=== PATIENT | female | born 1970 | race African-American/Black ===

== ENCOUNTER 2024-12-31 09:12 | Emergency (ER) | payer MEDICAID, OTHER ==
[~2024-12-31] VITALS: Ht 182.9 cm; Wt 74.1 kg
--- NOTE | 2024-12-31 09:54 | ED.PDOC ---
History of Present Illness HPI Comments 54F presents to the ER w/ no prior Hx associated to the c/c of flank pain which radiates down to the left leg. pt reports on having left flank pain which radiates to the left leg in a "shocking". Pt notes that she has been unable to sleep for the past 2 days which is when the symptoms started. Denies chills, fever, N/V/D, SOB, CP or no other associated symptom's, modifiers, recent injuries or sick contacts at this time. Chief Complaint: Flank Pain Time Seen by MD: 09:40 Reviewed Notes: Nurses Notes, Medications, Allergies Allergies: Coded Allergies: Penicillins (Verified Allergy, Unknown, 12/31/24) Information Source: Patient Mode of Arrival: Ambulatory Severity: Moderate Timing: Days Duration: Since onset, Days Prehospital treatment: None Past Medical History PAST MEDICAL HISTORY: Denies Surgical History: Denies all surgeries COREMAKER History: No Pertinent COREMAKER History Family History Family History: Reviewed,noncontributory to illness, Unknown Social History Smoker: Non-Smoker Alcohol: Denies ETOH Use Drugs: Denies Drug Use Lives In: Home Constitutional: denies: chills, diaphoresis, fatigue, fever, malaise, sweats, weakness, others EENTM: denies: blurred vision, double vision, ear bleeding, ear discharge, ear drainage, ear pain, ear ringing, eye pain, eye redness, hearing loss, mouth pain, mouth swelling, nasal discharge, nose bleeding, nose congestion, nose pain, photophobia, tearing, throat pain, throat swelling, voice changes, others Respiratory: denies: cough, hemoptysis, orthopnea, SOB at rest, shortness of breath, SOB with excertion, stridor, wheezing, others Cardiovascular: denies: chest pain, dizzy spells, diaphoresis, Dyspnea on exertion, edema, irregular heart beat, left arm pain, lightheadedness, palpitations, PND, syncope, others Gastrointestinal: denies: abdomen distended, abdominal pain, blood streaked bowels, constipated, diarrhea, dysphagia, difficulty swallowing, hematemesis, melena, nausea, poor appetite, poor fluid intake, rectal bleeding, rectal pain, vomiting, others Genitourinary: reports: flank pain; denies: abnormal vagina bleeding, burning, dyspareunia, dysuria, frequency, hematuria, incontinence, pain, , vagina discharge, urgency, others Neurological: denies: dizziness, fainting, headache, left sided numbness, left sided weakness, numbness, paresthesia, pre-existing deficit, right sided numbness, right sided weakness, seizure, speech problems, tingling, tremors, weakness, others Musculoskeletal: denies: back pain, gout, joint pain, joint swelling, muscle pain, muscle stiffness, neck pain, others Integumetry: denies: bruises, change in color, change in hair/nails, dryness, laceration, lesions, lumps, rash, wounds, others Allergic/Immunocompromised: denies: Difficulty Healing, Frequent Infections, Hives, Itching, others Hematologic/Lymphatic: denies: anemia, blood clots, easy bleeding, easy bruising, swollen glands, others Endocrine: denies: excessive hunger, excessive sweating, excessive thirst, excessive urination, flushing, intolerance to cold, intolerance to heat, unexplained weight gain, unexplained weight loss, others Psychiatric: denies: anxiety, bipolar disorder, depression, hopeless, panic disorder, schizophrenia, sleepless, suicidal, others All Other Systems: Reviewed and Negative Physical Exam General Appearance: Moderate Distress, Normal HEENT: Normal ENT Inspection, Pharynx Normal, TMs Normal Neck: Full Range of Motion, Non-Tender, Normal, Normal Inspection Respiratory: Chest Non-Tender, Lungs Clear, No Accessory Muscle Use, No Res piratory Distress, Normal Breath Sounds Cardiovascular: No Edema, No JVD, No Murmur, No Gallop, Normal Peripheral Pulses, Regular Rate/Rhythm Breast Exam: Deferred Gastrointestinal: No Organomegaly, Non Tender, No Pulsatile Mass, Normal Bowel Sounds, Soft Genitalia: Deferred Pelvic: Deferred Rectal: Deferred Extremities: No calf tenderness, Normal capillary refill, Normal inspection, Normal range of motion, Non-tender, No pedal edema Musculoskeletal : Apperance: Normal Neurologic: Alert, fund accountant II-XII nml as Tested, No Motor Deficits, Normal Affect, Normal Mood, No Sensory Deficits Cerebellar Function: Normal Reflexes: Normal Skin: Dry, Normal Color, Warm Peripheral Pulses: 3+ Radial (R), 3+ Radial (L) Lymphatic: No Adenopathy Was a procedure done? Was a procedure done?: No Differential Dx Considerations may include: UTI Electrolyte imbalance X-Ray, Labs, Meds, VS Vital Signs Date Time Temp Pulse Resp B/P (MAP) Pulse Ox O2 Delivery O2 Flow Rate FiO2 12/31/24 10:05 89 18 97 Room Air* 0 21 12/31/24 10:00 97.4 89 18 185/100 (128) 97 97.4 12/31/24 09:38 97.7 80 16 176/81 (112) 97 97.7 Lab Test 12/31/24 10:10 12/31/24 09:40 Range/Units White Blood Count 10.0 4.4-10.8 10^3/uL Red Blood Count 5.37 H 4.0-5.20 10^6/uL Hemoglobin 14.0 12.2-16.2 g/dL Hematocrit 43.7 36.0-46.0 % Mean Corpuscular Volume 81.4 80.0-100.0 fL Mean Corpuscular Hemoglobin 26.1 L 28.0-32.0 pg Mean Corpuscular Hemoglobin Concent 32.1 32.0-36.0 g/dL Red Cell Distribution Width 14.1 11.8-14.3 % Platelet Count 209 140-450 10^3/uL Mean Platelet Volume 9.8 6.9-10.8 fL Neutrophils (%) (Auto) 60.1 37.0-80.0 % Lymphocytes (%) (Auto) 27.1 10.0-50.0 % Monocytes (%) (Auto) 11.0 0.0-12.0 % Eosinophils (%) (Auto) 0.8 0.0-7.0 % Basophils (%) (Auto) 1.0 0.0-2.0 % Neutrophils # (Auto) 6.0 1.6-8.6 10 ^3/uL Lymphocytes # (Auto) 2.7 0.4-5.4 10 ^3/uL Monocytes # (Auto) 1.1 0-1.3 10 ^3/uL Eosinophils # (Auto) 0.1 0-0.8 10 ^3/uL Basophils # (Auto) 0.1 0-0.2 10 ^3/uL Nucleated Red Blood Cells 0.2 % Sodium Level 140 136-145 mmol/L Potassium Level 3.8 3.5-5.1 mmol/L Chloride Level 109 H 98-107 mmol/L Carbon Dioxide Level 27 20-31 mmol/L Anion Gap 4 L 5-15 Blood Urea Nitrogen 6 L 9-23 mg/dL Creatinine 0.77 0.550-1.02 mg/dL Glomerular Filtration Rate Calc 92 >90 mL/min BUN/Creatinine Ratio 7.8 L 10.0-20.0 Serum Glucose 123 H 74-106 mg/dL Calcium Level 10.7 H 8.7-10.4 mg/dL Urine Color Yellow Yellow Urine Clarity Turbid H Clear Urine pH 5.0 5.0-9.0 Urine Specific [place] 1.015 1.001-1.035 Urine Protein Negative Negative Urine Ketones Negative Negative Urine Blood Trace H Negative /uL Urine Nitrite Negative Negative Urine Bilirubin Negative Negative Urine Urobilinogen Normal Negative mg/dL Urine Leukocyte Esterase 2+ Negative /uL Urine RBC 2 0 - 4 /hpf Urine Microscopic WBC 9 H 0-5 /HPF Urine Squamous Epithelial Cells Mod <5 /hpf Urine Bacteria Few H None Seen /hpf Urine Glucose Normal Normal mg/dL Current Medications Medications (Trade) Dose Ordered Sig/Gabo Route Start Time Stop Time Status Last Admin Ceftriaxone Sodium 50 ml @ 100 mls/hr ONCE ONCE IV 12/31/24 11:15 12/31/24 11:44 DC 12/31/24 11:43 Sodium Chloride 1,000 ml @ 1,000 mls/hr Q1H ONCE IV 12/31/24 11:15 12/31/24 12:14 DC 12/31/24 11:43 Patient alert. Complaining of flank pain. Vitals stable. Answering questions. Urinalysis shows UTI. Blood pressure elevated. Was given labetalol. Calcium elevated. Establish intravenous access. Was given fluids. Urosepsis. Was given Rocephin. Patient insists on staying. She states that he has something wrong with her. CT scan. Explained to the patient. Continue cardiac monitoring. Time of 1ST Reevaluation: 10:10 Reevaluation 1ST: Unchanged Patient Education/Counseling: Diagnosis, Treatment, Prognosis Family Education/Counseling: No Family Present Departure 1 Departure Time of Disposition: 11:00 Impression: Primary Impression: Hypercalcemia Additional Impression: UTI (urinary tract infection) Qualified Codes: N30.00 - Acute cystitis without hematuria Disposition: ADMITTED INPATIENT Admit to: Med Surg Condition: Guarded e-Prescriptions Sulfamethoxazole W/Trimethopri (Bactrim Ds Tablet) 1 Tab Tb 1 TAB PO BID for 7 Days, #14 TAB Prov: DAMARIS DRAKE MD 12/31/24 Critical Care Note Critical Care Time?: No Stability Stability form required: No Heart Score Heart Score: Heart Score Response (Comments) Value History N/A 0 EKG N/A 0 Age N/A 0 Risk Factors N/A 0 Troponin N/A 0 Total 0 I personally scribed for DAMARIS DRAKE MD ([email or web address]) on 12/31/24 at 09:54. Electronically submitted by Ronak Boland ([email or web address]). DAMARIS DRAKE MD Dec 31, 2024 09:54
[2024-12-31 10:05] VITALS: PULSE 89; RESP 18; O2SAT 97
[2024-12-31 10:06] LABS: Urine Bacteria FEW /hpf (None Seen); Urine Blood TRACE /uL (Negative); Urine Clarity Turbid (Clear); Urine Color Yellow (Yellow); Urine Protein, UAD Negative (Negative); Urine Specific Gravity 1.015 (1.001-1.035); Urine Squamous Epithelial Cell MOD /hpf (<5); Urine Urobilinogen Normal (Negative); Urine WBC 9 /HPF (0-5)
[2024-12-31 10:17] LABS: Basophils # (auto) 0.1 10 ^3/uL (0-0.2); Eosinophils # (auto) 0.1 10 ^3/uL (0-0.8); Eosinophils % (auto) 0.8 % (0.0-7.0); Lymphocytes # (auto) 2.7 10 ^3/uL (0.4-5.4); Nucleated Red Blood Cells % 0.2 %
[2024-12-31 10:19] LABS: Hematocrit 43.7 % (36.0-46.0); Lymphocytes % (auto) 27.1 % (10.0-50.0); Mean Corpuscular Hemoglobin 26.1 pg (28.0-32.0); Mean Corpuscular Hgb Conc. 32.1 g/dL (32.0-36.0); Mean Corpuscular Volume 81.4 fL (80.0-100.0); Monocytes # (auto) 1.1 10 ^3/uL (0-1.3); Neutrophils % (auto) 60.1 % (37.0-80.0); Platelet Count (auto) 209 10^3/uL (140-450); Red Blood Cells 5.37 10^6/uL (4.0-5.20); Red Cell Distribution Width 14.1 % (11.8-14.3)
[2024-12-31 10:40] LABS: Potassium 3.8 mmol/L (3.5-5.1); Sodium 140 mmol/L (136-145)
[2024-12-31 10:41] LABS: Carbon Dioxide 27 mmol/L (20-31)
[2024-12-31 10:43] LABS: Anion Gap 4 (5-15); Calcium 10.7 mg/dL (8.7-10.4); Chloride 109 mmol/L (98-107)
[2024-12-31 10:46] LABS: BUN/Creatinine Ratio 7.8 (10.0-20.0)
[2024-12-31 10:47] LABS: Blood Urea Nitrogen 6 mg/dL (9-23); Glucose 123 mg/dL (74-106)
[2024-12-31] MEDS: SODIUM CHLORIDE 0.9% 1,000 ML IV ONE ×2 (11:43→13:19)
[2024-12-31] MEDS: cefTRIAXone 1GM/50ML D5W 50 ML IV ONE (11:43)
--- NOTE | 2024-12-31 11:56 | DVH ---
CT abdomen and pelvis without contrast INDICATION: stonevscystitis TECHNIQUE: Serial axial images were performed through the abdomen and pelvis and then reformatted in the sagittal and coronal plane. All CT scans at this medical facility are performed using dose modula tion techniques as appropriate to a performed exam including the following: Automated exposure contro l was utilized; adjustment of the MA and/or KvP according to patient size; and use of iterative recon struction technique. FINDINGS: Liver and spleen are normal in size without focal mass. No renal masses, stones or hydronep hrosis. No masses or enlargement of the adrenal glands or pancreas. No biliary dilatation. No gallsto alton. No distention of bowel loops to suggest mechanical obstruction of bowel. The appendix is normal in appearance. No free fluid. Within the pelvis, bladder is smooth walled without stones. No abnormal masses or fluid collections. IMPRESSION: 1. No evidence of urinary tract calculi or infection Computed Tomographic Radiation Dosimetry Report: Total CTDI vol = 9.59mGy Total DLP = 518.22mGy-cm Lo w dose protocols were performed.
[2024-12-31] MEDS ORDERED: BACDST PO (13:07)
[2024-12-31 13:26] VITALS: BP 150/77; PULSE 72; RESP 18; TEMP 98; O2SAT 98
== END 2024-12-31 14:36 | disposition home or self-care (01) ==
LOC: ER 09:12
DX: E83.52 Hypercalcemia (principal); N39.0 Urinary tract infection, site not specified; Z88.0 Allergy status to penicillin
CPT/HCPCS: 36415; 74176; 80048; 81001; 85025; 87086; 96365; 96366; 99285; J0696; J7030